=== PATIENT | male | born 1995 | race Caucasian/White ===

== ENCOUNTER 2021-03-15 16:04 | Emergency (ER) | payer BC ==
--- NOTE | 2021-03-15 17:30 | XR ---
EXAMINATION TYPE: XR lumbar spine 2 or 3V DATE OF EXAM: 03/15/2021 COMPARISON: NONE HISTORY: Back pain TECHNIQUE: 3 views FINDINGS: Lumbar Normal alignment. Posterior elements are intact. Disc spaces are normal. There is no compression frac ture. Sacroiliac joints are intact IMPRESSION: Negative lumbar spine exam. No fracture.
--- NOTE | 2021-03-15 18:47 | ED ---
Back Pain HPI - General Chief Complaint: Back Pain/Injury Stated Complaint: fall, back injury Time Seen by Provider: 03/15/21 18:37 Source: patient, RN notes reviewed Limitations: no limitations - History of Present Illness Initial Comments: Patient is a 25-year-old male that presents to the emergency department complaining of back pain after he slipped and fell on ice. Patient notes that he is only in town for a few days for a . Patient denied any saddle anesthesia bladder bowel incontinence or retention. Patient was well-appearing. He denied any chest pain shortness of breath headache nausea vomiting diarrhea constipation fever fatigue chills. - Related Data Previous Rx's Medication Instructions Recorded Cyclobenzaprine HCl 10 mg PO TID #21 tab 03/15/21 Allergies Allergy/AdvReac Type Severity Reaction Status Date / Time cefdinir [From Omnicef] Allergy Unknown Verified 03/15/21 16:59 Review of Systems ROS Statement: Those systems with pertinent positive or pertinent negative responses have been documented in the HPI. ROS Other: All systems not noted in ROS Statement are negative. 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 leg Past Psychological History: Bipolar Smoking Status: Never smoker Past Alcohol Use History: None Reported Past Drug Use History: None Reported General Exam Limitations: no limitations General appearance: alert, in no apparent distress Head exam: Present: atraumatic, normocephalic, normal inspection Eye exam: Present: normal appearance, PERRL, EOMI. Absent: scleral icterus, conjunctival injection, periorbital swelling ENT exam: Present: normal exam, mucous membranes moist Neck exam: Present: normal inspection Respiratory exam: Present: normal lung sounds bilaterally. Absent: respiratory distress, wheezes, rales, rhonchi, stridor Cardiovascular Exam: Present: regular rate, normal rhythm, normal heart sounds. Absent: systolic murmur, diastolic murmur, rubs, gallop, clicks Extremities exam: Present: normal inspection, full ROM, normal capillary refill. Absent: tenderness, pedal edema, joint swelling, calf tenderness Back exam: Present: normal inspection. Absent: tenderness Neurological exam: Present: alert, oriented X3 Psychiatric exam: Present: normal affect, normal mood Skin exam: Present: warm, dry, intact, normal color. Absent: rash Course Vital Signs 03/15/21 16:56 Temperature 97.8 F Pulse Rate 70 Respiratory 20 Rate Blood Pressure 119/79 O2 Sat by Pulse 98 Oximetry Medical Decision Making - Medical Decision Making 25-year-old male complaining of back pain actually in falling. X-ray lumbar spine ordered and is negative for any acute osseous abnormalities. Patient informed of results and informed most likely has muscle spasms from falling. Patient is reluctant discharge home with muscle relaxer sent to pharmacy. Case discussed with Dr. Blanco. - Radiology Data Radiology results: report reviewed, image reviewed Lumbar spine x-ray: Negative lumbar spine exam. No fracture. Disposition Clinical Impression: Mechanical back pain Disposition: HOME SELF-CARE Condition: Stable Instructions (If sedation given, give patient instructions): Acute Low Back Pain (ED) Additional Instructions: Please return to the Emergency Department if symptoms worsen or any other concerns. Follow-up with primary care in 1-2 days. Continue to take Tylenol Motrin alternating every 3 hours as needed for pain. Take muscle relaxers as prescribed. Prescriptions: Cyclobenzaprine HCl 10 mg PO TID #21 tab Is patient prescribed a controlled substance at d/c from ED?: No Referrals: Nonstaff,Physician [Primary Care Provider] - 1-2 days Time of Disposition: 18:47
[2021-03-15 18:58] VITALS: BP 118/77; PULSE 72; RESP 16; TEMP 98
== END 2021-03-15 18:55 | disposition home or self-care (01) ==
LOC: EC 16:04
DX: M54.9 Dorsalgia, unspecified (principal); Z88.1 Allergy status to other antibiotic agents; W00.0XXA Fall on same level due to ice and snow, initial encounter; Y92.89 Other specified places as the place of occurrence of the external cause
CPT/HCPCS: 72100; 99283

== ENCOUNTER 2021-10-12 15:53 | Emergency (ER) | payer BC ==
[2021-10-12 15:58] VITALS: BP 132/71; PULSE 95; RESP 16; TEMP 97.9
[2021-10-12] MEDS ORDERED: DIPH,PERTUS(ACELL)TETVAC-LF 0.5 ML VIAL IM ONE (16:16)
[2021-10-12] MEDS ORDERED: LIDOCAINE/EPINEPHR/TETRACAINE 5 ML BOTTLE TOPICAL ONE (16:17)
[2021-10-12] MEDS ORDERED: LIDOCAINE 1% INJ 10MG/ML (5 ML VIAL-PF) SQ ONE (16:17)
--- NOTE | 2021-10-12 16:39 | ED ---
Wound/Laceration HPI - General Chief Complaint: Wound/Laceration Stated Complaint: rt foot wound Time Seen by Provider: 10/12/21 16:00 Source: patient Mode of arrival: ambulatory - History of Present Illness Initial Comments: Patient is a 25-year-old male presenting with chief complaint of right foot laceration. Patient has a history of factor VII deficiency. Patient states th at he cut the foot on broken glass today. Patient is unsure when his last tetanus was. He denies any numbness, tingling, weakness, loss of range of motion. - Related Data Previous Rx's Medication Instructions Recorded Cyclobenzaprine HCl 10 mg PO TID #21 tab 03/15/21 Allergies Allergy/AdvReac Type Severity Reaction Status Date / Time cefdinir [From Omnicef] Allergy Unknown Verified 10/12/21 15:58 Review of Systems ROS Statement: Those systems with pertinent positive or pertinent negative responses have been documented in the HPI. ROS Other: All systems not noted in ROS Statement are negative. 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 leg Past Psychological History: Bipolar Smoking Status: Never smoker Past Alcohol Use History: None Reported Past Drug Use History: None Reported General Exam Limitations: no limitations General appearance: alert, in no apparent distress Head exam: Present: atraumatic, normocephalic, normal inspection Eye exam: Present: normal appearance, EOMI. Absent: scleral icterus, periorbital swelling Neck exam: Present: normal inspection Extremities exam: Present: full ROM, normal capillary refill Neurological exam: Present: alert, oriented X3, CN II-XII intact Psychiatric exam: Present: normal affect, normal mood Skin exam: Present: warm, dry, normal color. Absent: rash Expanded Type of lesion: Present: laceration (2 cm V-shaped laceration on the plantar surface of the right foot) Course Vital Signs 10/12/21 15:56 Temperature 97.9 F Pulse Rate 95 Respiratory 16 Rate Blood Pressure 132/71 O2 Sat by Pulse 95 Oximetry Procedures - Laceration Laceration #1 Consent Obtained: verbal consent Indication: laceration Site: foot Size (cm): 2 Description: flap Depth: simple, single layer Anesthetic Used: lidocaine 1%, without epi Anesthesia Technique: local infiltration Amount (mls): 2 Pre-repair: wound explored, irrigated extensively Type of Sutures: nylon Size of Sutures: 4-0 Number of Sutures: 2 Technique: simple, interrupted Patient Tolerated Procedure: well Medical Decision Making - Medical Decision Making Patient is a 25-year-old male presenting for evaluation of laceration to the sole of the right foot. Patient dropped a glass on the floor, cut his foot on a shard. Patient has factor VII deficiency, he and difficulty controlling the bleeding earlier, at time of presentation bleeding is well-controlled. Patient is unsure when his last tetanus was, tetanus was updated here in the ER. On gross examination I saw no shard of glass or foreign body. X-ray no abnormalities or visible foreign body. Wound was irrigated extensively with 1 L of sterile water. 2 simple interrupted sutures were placed using 4-0 nylon. Patient tolerated the procedure well. Sutures may be removed in 14-21 days. Report back to ER with any new or worsening symptoms. Educated on signs of infection. Follow-up with PCP. Discussed return parameters answered all questions. Patient conveyed verbal understanding and agreed to the plan. My attending is Dr. Carlin. Disposition Clinical Impression: Laceration Disposition: HOME SELF-CARE Condition: Good Instructions (If sedation given, give patient instructions): Care For Your Stitches (ED), Laceration (ED) Additional Instructions: Follow-up with PCP. Report back to ER with any new or worsening symptoms. Monitor for signs of infection, including but not limited to redness, swelling, warmth, discharge, red streaks up the foot, fever, chills. Keep the wound clean and dry and covered. Sutures may be removed in 14-21 days, this can be done here in the ER, her PCP, or by local urgent care. Is patient prescribed a controlled substance at d/c from ED?: No Referrals: Nonstaff,Physician [REFERRING] - 1-2 days Time of Disposition: 17:50
--- NOTE | 2021-10-12 17:08 | XR ---
EXAMINATION TYPE: XR foot complete RT DATE OF EXAM: 10/12/2021 4:41 PM INDICATION: Patient age:Male; 25 years old; Reason for study: laceration, r/o FB; COMPARISON: None TECHNIQUE: The right foot was examined in the AP, oblique, and lateral projections. FINDINGS: No evidence of any acute osseous pathology. No evidence of soft tissue swelling. Joints are preserve d. No radiopaque foreign body. IMPRESSION: 1. No evidence of acute fracture. 2. No radiopaque foreign body
== END 2021-10-12 17:57 | disposition home or self-care (01) ==
LOC: EC 15:53
DX: S91.311A Laceration without foreign body, right foot, initial encounter (principal); Z23 Encounter for immunization; F31.9 Bipolar disorder, unspecified; Z88.1 Allergy status to other antibiotic agents; W25.XXXA Contact with sharp glass, initial encounter
CPT/HCPCS: 73630; 90715; 99283; 90471; 12001; J2001

== ENCOUNTER 2023-06-12 13:22 | Emergency (ER) | payer BC, OTHER ==
[2023-06-12 14:13] VITALS: BP 136/69; PULSE 65; RESP 18; TEMP 98
--- NOTE | 2023-06-12 14:25 | ED ---
Lower Extremity Injury HPI - General Chief Complaint: Extremity Injury, Lower Stated Complaint: fall Time Seen by Provider: 06/12/23 13:53 Source: patient, RN notes reviewed, old records reviewed Mode of arrival: ambulatory Limitations: no limitations - History of Present Illness Initial Comments: This is a 27-year-old male to ER for evaluation of severe right foot pain. Patient has had significant and severe pain in his right foot for going on a week now. He had 2 outpatient visits both with x-rays which were negative told to come to the ER for further evaluation of possible fracture. Patient is having severe pain mainly in the heel of his right foot when he is unable to bear weight, patient has been doing just a toe-touch with difficulty in ambulation. No medical history takes no medications, naproxen at home for pain which is not currently working MD Complaint: foot injury -: week(s) (1) Injury: Foot: Right Type of Injury: blunt Place: home Severity: moderate Severity scale (1-10): 7 Improves With: nothing Worsens With: weight bearing Context: fall, direct blow Associated Symptoms: swelling, unable to bear weight Treatments Prior to Arrival: other (0) - Related Data Previous Rx's Medication Instructions Recorded Cyclobenzaprine HCl 10 mg PO TID #21 tab 03/15/21 Allergies Allergy/AdvReac Type Severity Reaction Status Date / Time cefdinir [From Omnicef] Allergy Unknown Verified 06/12/23 13:36 Review of Systems ROS Statement: Those systems with pertinent positive or pertinent negative responses have been documented in the HPI. ROS Other: All systems not noted in ROS Statement are negative. 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 leg Past Psychological History: Bipolar Smoking Status: Never smoker Past Alcohol Use History: None Reported Past Drug Use History: None Reported General Exam Limitations: no limitations General appearance: alert, in no apparent distress Head exam: Present: atraumatic, normocephalic, normal inspection Eye exam: Present: normal appearance, PERRL, EOMI. Absent: scleral icterus, conjunctival injection, periorbital swelling ENT exam: Present: normal exam, mucous membranes moist Neck exam: Present: normal inspection. Absent: tenderness, meningismus, lymphadenopathy Respiratory exam: Present: normal lung sounds bilaterally. Absent: respiratory distress, wheezes, rales, rhonchi, stridor Cardiovascular Exam: Present: regular rate, normal rhythm, normal heart sounds. Absent: systolic murmur, diastolic murmur, rubs, gallop, clicks GI/Abdominal exam: Present: soft, normal bowel sounds. Absent: distended, tenderness, guarding, rebound, rigid Extremities exam: Present: normal inspection, full ROM, normal capillary refill. Absent: tenderness, pedal edema, joint swelling, calf tenderness Back exam: Present: normal inspection Neurological exam: Present: alert, oriented X3, CN II-XII intact Psychiatric exam: Present: normal affect, normal mood Skin exam: Present: warm, dry, intact, normal color. Absent: rash Course Vital Signs 06/12/23 13:33 Temperature 98.0 F Pulse Rate 65 Respiratory 18 Rate Blood Pressure 136/69 O2 Sat by Pulse 99 Oximetry - Reevaluation(s) Reevaluation #1: 06/12/23 17:01 Medical record is reviewed Reevaluation #2: 06/12/23 17:01 Patient has no change in symptoms here in the ER Reevaluation #3: 06/12/23 17:01 Patient informed of results and questions answered Reevaluation #4: Was pt. sent in by a medical professional or institution ([facility], HOME VISITOR, urgent care, hospital, or retirement...) When possible be specific @ -no Did you speak to anyone other than the patient for history (EMS, parent, family, police, friend...)? What history was obtained from this source @ -no Did you review nursing and triage notes (agree or disagree)? Why? @ -agree Are old charts reviewed (outside hosp., previous admission, EMS record, old EKG, old radiological studies, urgent care reports/EKG's, retirement records)? Report findings @ -yes Differential Diagnosis (chest pain, altered mental status, abdominal pain women, abdominal pain men, vaginal bleeding, weakness, fever, dyspnea, syncope, headache, dizziness, GI bleed, back pain, seizure, CVA, palpatations, mental health, musculoskeletal)? @ -prior EKG interpreted by me (3pts min.). @ -no X-rays interpreted by me (1pt min.). @ -yes negative for acute disease CT interpreted by me (1pt min.). @ -Yes negative for acute disease U/S interpreted by me (1pt. min.). @ -no What testing was considered but not performed or refused? (CT, X-rays, U/S, labs)? Why? @ -none What meds were considered but not given or refused? Why? @ -none Did you discuss the management of the patient with other professionals (professionals i.e. Dr., PA, HOME VISITOR, lab, RT, psych nurse, psych social worker, industrial maintenance instructor, teacher, protocol officer, shoe parts caser)? Give summary @ -no Was smoking cessation discussed for >3mins.? @ -no Was critical care preformed (if so, how long)? @ -no Were there social determinants of health that impacted care today? How? (Homelessness, low income, unemployed, alcoholism, drug addiction, transportation, low edu. Level, literacy, decrease access to med. care, residential, rehab)? @ -none Was there de-escalation of care discussed even if they declined (Discuss DNR or withdrawal of care, Hospice)? DNR status @ -no What co-morbidities impacted this encounter? (DM, HTN, Smoking, COPD, CAD, Cancer, CVA, ARF, Chemo, Hep., AIDS, mental health diagnosis, sleep apnea, morbid obesity)? @ -none Was patient admitted / discharged? Hospital course, mention meds given and route, prescriptions, significant lab abnormalities, going to OR and other pertinent info. @ - 27 male to ER with severe right foot pain. Patient is impatient to walk away for further evaluation of foot pain. Patient is has no acute findings on x-ray CT is pending and patient can be discharged home Discharge Undiagnosed new problem with uncertain prognosis? @ -no Drug Therapy requiring intensive monitoring for toxicity (Heparin, Nitro, Insulin, Cardizem)? @ -no Were any procedures done? @ -no Diagnosis/symptom? @ -Right foot pain Acute, or Chronic, or Acute on Chronic? @ -Acute Uncomplicated (without systemic symptoms) or Complicated (systemic symptoms)? @ -Complicated Side effects of treatment? @ -no Exacerbation, Progression, or Severe Exacerbation? @ -exacerbation Poses a threat to life or bodily function? How? (Chest pain, [place], ID, pneumonia, PE, COPD, DKA, ARF, appy, cholecystitis, CVA, Diverticulitis, Homicidal, Suicidal, threat to staff... and all critical care pts) @ -no Medical Decision Making - Medical Decision Making 27 male to ER with severe right foot pain. Patient is impatient to walk away for further evaluation of foot pain. Patient is has no acute findings on x-ray CT is pending and patient can be discharged home - Radiology Data Radiology results: report reviewed (X-ray ankle x-ray foot negative for traumatic injury CT foot is negative for significant traumatic injury or illness), image reviewed Disposition Clinical Impression: Right foot pain Disposition: HOME SELF-CARE Condition: Good Instructions (If sedation given, give patient instructions): Foot Contusion (ED), Foot Sprain (ED) Is patient prescribed a controlled substance at d/c from ED?: No Referrals: None,Stated [Primary Care Provider] - 1-2 days Time of Disposition: 17:00
--- NOTE | 2023-06-12 14:56 | XR ---
EXAMINATION TYPE: XR foot complete RT DATE OF EXAM: 06/12/2023 2:25 PM CLINICAL INDICATION:Male, 27 years old with history of pain; fell down stairs one week ago COMPARISON: None. TECHNIQUE: Three views right foot were obtained. FINDINGS: No evidence of fracture or significant malalignment. Joint spaces are maintained. Soft tissues are un remarkable. No radiopaque foreign body is seen. IMPRESSION: Negative right foot.
--- NOTE | 2023-06-12 14:58 | XR ---
EXAMINATION TYPE: XR ankle complete RT DATE OF EXAM: 06/12/2023 2:25 PM CLINICAL INDICATION:Male, 27 years old with history of pain; t COMPARISON: None TECHNIQUE: The right ankle is imaged in frontal, lateral and oblique projections. FINDINGS: Osseous mineralization appears appropriate. No acute fracture lucency or significant malalignment. An kle mortise appears preserved. Talar dome looks intact. Soft tissues appear within normal limits. No sizable joint effusion. No radiopaque foreign body is seen. IMPRESSION: No evidence of acute fracture or dislocation of the ankle.
--- NOTE | 2023-06-12 20:00 | CT ---
EXAMINATION TYPE: CT lower extremity RT wo con DATE OF EXAM: 06/12/2023 COMPARISON: Same day radiographs HISTORY: right foot/ankle pain following fall. CT DLP: 57.7 mGycm Automated exposure control for dose reduction was used. TECHNIQUE: Noncontrast CT through the right lower extremity from the mid calf through the foot. Multiplanar refo rmats and 3-D reconstructed images generated on a remote workstation. FINDINGS: Bones: Osseous mineralization is appropriate. There is no evidence of fracture or significant malalig nment. No osseous destructive process. Joint spaces are maintained. Soft tissues: There is mild soft tissue swelling suggested over the lateral aspect of the ankle, late ral foot, and dorsum of the foot. No soft tissue gas or radiopaque foreign body is seen. No ankle richard nt effusion. IMPRESSION: 1. NO EVIDENCE OF ACUTE FRACTURE OR DISLOCATION. 2. MILD SOFT TISSUE SWELLING.
== END 2023-06-12 17:18 | disposition home or self-care (01) ==
LOC: EC 13:22
DX: M79.671 Pain in right foot (principal); Z88.1 Allergy status to other antibiotic agents
CPT/HCPCS: 99284

== ENCOUNTER 2023-09-25 01:09 | Emergency (ER) | payer OTHER ==
--- NOTE | 2023-09-25 01:58 | ED ---
ENT HPI - General Chief complaint: ENT Stated complaint: Ear Infection Time Seen by Provider: 09/25/23 01:34 Source: patient, RN notes reviewed Mode of arrival: ambulatory Limitations: no limitations - History of Present Illness Initial comments: This is a 27-year-old male who presents to the emergency department for concerns of an ear infection. States that over the last week he has had pain in both of his ears. He went to urgent care and they prescribed him with amoxicillin and steroids. Since then the pain has gotten worse. He states that his ears now feel swollen and he has also developed a sore throat. Also feels like his hearing is somewhat muffled. His ears are also tender to the touch. MD complaint: sore throat, ear pain - Related Data Previous Rx's Medication Instructions Recorded RX: Cyclobenzaprine HCl 10 mg PO TID #21 tab 03/15/21 Amoxic-Pot Clav 875-125Mg 1 tab PO BID 10 Days #20 tab 09/25/23 [Augmentin 875-125] RX: Ibuprofen [Motrin] 800 mg PO Q8H PRN #30 tab 09/25/23 Allergies Allergy/AdvReac Type Severity Reaction Status Date / Time cefdinir [From Omnicef] Allergy Unknown Verified 09/25/23 01:20 Review of Systems ROS Statement: Those systems with pertinent positive or pertinent negative responses have been documented in the HPI. ROS Other: All systems not noted in ROS Statement are negative. 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 History of Any Multi-Drug Resistant Organisms: None Reported Past Surgical History: Orthopedic Surgery Additional Past Surgical History / Comment(s): nose surg x 2, left knee orthopedic procedure Past Psychological History: Bipolar Smoking Status: Never smoker Past Alcohol Use History: None Reported Past Drug Use History: None Reported General Exam Limitations: no limitations General appearance: alert, in no apparent distress Head exam: Present: atraumatic, normocephalic, normal inspection ENT exam: Present: other (Erythema and bulging to the bilateral TMs with erythema of the bilateral canals. Tenderness with movement of the tragus and pinna bilaterally. No posterior pharyngeal erythema or tonsillar hypertrophy.) Respiratory exam: Present: normal lung sounds bilaterally. Absent: respiratory distress, wheezes, rales, rhonchi, stridor Cardiovascular Exam: Present: regular rate, normal rhythm, normal heart sounds. Absent: systolic murmur, diastolic murmur, rubs, gallop, clicks Neurological exam: Present: alert, oriented X3, CN II-XII intact Psychiatric exam: Present: normal affect, normal mood Skin exam: Present: warm, dry, intact, normal color. Absent: rash Course Vital Signs 09/25/23 09/25/23 01:20 02:39 Temperature 97.6 F 98.9 F Pulse Rate 68 77 Respiratory 15 141 H Rate Blood Pressure 132/85 126/71 O2 Sat by Pulse 98 98 Oximetry Medical Decision Making - Medical Decision Making This is a 27-year-old male who presents to the emergency department for ear pain. Was pt. sent in by a medical professional or institution? @ -No Did you speak to anyone other than the patient for history? @ -No Did you review nursing and triage notes? @ -Yes, and I agree, it is accurate with regards to the patient's symptoms. Were old charts reviewed? @ -No Differential Diagnosis? @ -Differential Ear Pain: Otitis media, otitis externa, eustachian tube dysfunction, allergic rhinitis, barotrauma, bullous myringitis, this is not meant to be an all-inclusive list. EKG interpreted by me (3pts min.)? @ -Not obtained X-rays interpreted by me (1pt min.)? @ -Not obtained CT interpreted by me (1pt min.)? @ -Not obtained U/S interpreted by me (1pt. min.)? @ -Not obtained What testing was considered but not performed? (CT, X-rays, U/S, labs)? Why? @ -None What meds were considered but not given? Why? @ -None Did you discuss the management of the patient with other professionals? @ -No Did you reconcile home meds? @ -No Was smoking cessation discussed for >3mins.? @ -No Was critical care preformed (if so, how long)? @ -No Were there social determinants of health that impacted care today? How? (Homelessness, low income, unemployed, alcoholism, drug addiction, transportation, low edu. Level, literacy, decrease access to med. care, alf, rehab)? @ -No Was there de-escalation of care discussed even if they declined? (Discuss DNR or withdrawal of care, Hospice)? @ -No What co-morbidities impacted this encounter? (DM, HTN, Smoking, COPD, CAD, Cancer, CVA, Hep., AIDS, mental health diagnosis, sleep apnea, morbid obesity)? @ -None Was patient admitted / discharged? @ -Discharged. Physical examination consistent with bilateral otitis media and externa. Patient has already been on amoxicillin, will switch him to Augmentin. Prescription for Augmentin and ibuprofen provided with dosing instructions reviewed. He was given Ciprodex drops in the emergency department and sent home with them to continue using for associated otitis externa. Advised follow-up with his PCP for reevaluation. Undiagnosed new problem with uncertain prognosis? @ -None Drug Therapy requiring intensive monitoring for toxicity (Heparin, Nitro, Insulin, Cardizem)? @ -None Were any procedures done? @ -None Diagnosis/symptom? @ -Otitis media, otitis externa Acute, or Chronic, or Acute on Chronic? @ -Acute Uncomplicated (without systemic symptoms) or Complicated (systemic symptoms)? @ -Uncomplicated Side effects of treatment? @ -None Exacerbation, Progression, or Severe Exacerbation] @ -Not applicable Poses a threat to life or bodily function? @ -No Return precautions reviewed in depth, the patient is instructed to return to the emergency department with any new, worsening, or concerning symptoms. Patient verbalized understanding. This case was discussed in detail with the attending ED physician, Dr. Arora. Presentation, findings, and treatment plan discussed in detail as well. Disposition Clinical Impression: Otitis media, Otitis externa Disposition: HOME SELF-CARE Instructions (If sedation given, give patient instructions): Swimmer's Ear (ED), Ear Infection (ED) Additional Instructions: Return to the emergency department with any new, worsening, or concerning symptoms. Take the antibiotic as prescribed for 10 days. Apply the Ciprodex drops provided as 4 drops in both ears twice daily for 7 days. Alternate with ibuprofen and Tylenol as needed for pain relief. Follow up with your primary care provider in 1-2 days. Prescriptions: Amoxic-Pot Clav 875-125Mg [Augmentin 875-125] 1 tab PO BID 10 Days #20 tab RX: Ibuprofen [Motrin] 800 mg PO Q8H PRN #30 tab PRN Reason: Pain Is patient prescribed a controlled substance at d/c from ED?: No Referrals: None,Stated [Primary Care Provider] - 1-2 days Time of Disposition: 13:58
[2023-09-25] MEDS: ACET/COD 300 MG/30 MG STARTER PACK 6 TAB BTL PO STA (01:59)
[2023-09-25] MEDS: AMOXIC-POT CLAV 875-125MG 1 EACH TAB PO STA (02:00)
[2023-09-25] MEDS: DEXAMETHASONE SOD PHOSPHATE 10 MG/ML 1 ML VIAL IM STA (02:00)
[2023-09-25] MEDS: CIPROFLOXACIN-DEXAMETH 0.3-0.1% DROPS 7.5 ML BTL BOTH EARS STA (02:00)
[2023-09-25] MEDS: KETOROLAC 15 MG/ML 1 ML VIAL IM STA (02:01)
[2023-09-25 02:41] VITALS: BP 126/71; PULSE 77; RESP 141; TEMP 98.9
== END 2023-09-25 02:14 | disposition home or self-care (01) ==
LOC: EC 01:09
DX: H66.93 Otitis media, unspecified, bilateral (principal); H60.93 Unspecified otitis externa, bilateral; Z88.1 Allergy status to other antibiotic agents
CPT/HCPCS: 99282; 96372 ×2; J1100; J1885